=== PATIENT | female | born 1930 | race Hispanic/Latino ===

== ENCOUNTER 2019-06-13 21:16 | Inpatient (IN) | payer MEDICARE ==
[~2019-06-13] VITALS: Ht 152.4 cm; Wt 50.4 kg
[2019-06-13 21:47] LABS: BASOPHILS % (AUTO) 0.3 % (0.0-5.0); EOSINOPHILS % (AUTO) 1.2 % (0.0-8.0); HEMATOCRIT 31.9 % (36-48); LYMPHOCYTES % (AUTO) 33.1 % (21.0-51.0); MEAN CORPUSCULAR HEMOGLOBIN 27.6 pg (27.0-33.0); MEAN CORPUSCULAR HGB CONC 33.2 g/dL (32.0-36.0); MEAN CORPUSCULAR VOLUME 83.1 fL (79-99); MONOCYTES % (AUTO) 7.3 % (3.0-13.0); NEUTROPHILS % (AUTO) 57.9 % (40.0-77.0); PLATELET COUNT (AUTO) 332 K/uL (130-400); RED BLOOD CELL COUNT(AUTO) 3.84 MIL/uL (4.00-5.50); RED CELL DISTRIBUTION WIDTH 13.2 % (11.0-15.5); WHITE BLOOD COUNT (AUTO) 10.4 K/uL (4.8-10.8)
[2019-06-13 21:58] LABS: CREATININE 0.8 mg/dL (0.5-1.5); POTASSIUM 3.9 mmol/L (3.5-5.1)
[2019-06-13 22:02] LABS: ALBUMIN 2.6 g/dL (3.5-5.0); BILIRUBIN,TOTAL 0.1 mg/dL (0.2-1.0); TOTAL PROTEIN, SERUM 7.8 g/dL (6.0-8.3)
[2019-06-13 22:08] LABS: APPEARANCE,URINE CLEAR (CLEAR); BILIRUBIN,URINE NEGATIVE (NEGATIVE); COLOR,URINE YELLOW (YELLOW); GLUCOSE, URINE (UA) NEGATIVE (NEGATIVE); KETONES,URINE NEGATIVE (NEGATIVE); LEUKOCYTE ESTERASE ,URINE NEGATIVE (NEGATIVE); NITRATE,URINE NEGATIVE (NEGATIVE); OCCULT BLOOD,URINE NEGATIVE (NEGATIVE); PROTEIN,URINE NEGATIVE (NEGATIVE)
[2019-06-13 22:31] LABS: INR 0.9 (0.85-1.15); PROTHROMBIN TIME 9.8 SEC (9.6-11.6)
[2019-06-14] VITALS (7 sets, daily range): BP systolic 105–150; BP diastolic 52–76
[2019-06-14] MEDS: SODIUM CHLORIDE 0.9% 1000ML 1,000 ML IV SCH ×2 (00:25→21:48)
[2019-06-14] MEDS: ASPIRIN 81 MG EC TAB PO SCH ×2 (00:30→08:53)
[2019-06-14] MEDS ORDERED: ONDANSETRON HCL 4 MG/2 ML VIAL IV PRN (00:30)
[2019-06-14] MEDS ORDERED: DIPHENHYDRAMINE HCL 25 MG CAPSULE PO PRN (00:30)
[2019-06-14] MEDS ORDERED: ACETAMINOPHEN 325 MG TAB PO PRN ×2 (00:30)
[2019-06-14] MEDS ORDERED: NITROGLYCERIN 0.4 MG SL TAB SL PRN (00:30)
[2019-06-14 01:14] LABS: CREATINE KINASE, TOTAL 28 U/L (21-232); MYOGLOBIN 20 ng/mL (10-92); TROPONIN I < 0.04 ng/mL (0.00-0.06)
[2019-06-14] MEDS ORDERED: MEGE400O4 PO (05:11)
[2019-06-14] MEDS ORDERED: FLUO25PO10 MC (05:11)
[2019-06-14] MEDS ORDERED: ACET325T51 PO (05:11)
[2019-06-14] MEDS ORDERED: OMEG1CAP2 PO (05:31)
[2019-06-14] MEDS ORDERED: PROM25TA7 PO (05:31)
[2019-06-14] MEDS ORDERED: MVIT PO (05:31)
[2019-06-14] MEDS ORDERED: LISI-658 PO (05:31)
[2019-06-14] MEDS ORDERED: SIMV-43 PO (05:31)
[2019-06-14] MEDS ORDERED: ONDA4AMP IJ (05:31)
[2019-06-14] MEDS ORDERED: ZINC220T5 PO (05:31)
[2019-06-14] MEDS ORDERED: NITR0.4T50 SL (05:31)
[2019-06-14] MEDS ORDERED: ASCO-360 PO (05:31)
[2019-06-14] MEDS ORDERED: CALC-259 PO (05:31)
[2019-06-14 06:54] LABS: HEMATOCRIT 28.4 % (36-48); MEAN CORPUSCULAR HEMOGLOBIN 27.2 pg (27.0-33.0); MEAN CORPUSCULAR HGB CONC 33.1 g/dL (32.0-36.0); MEAN CORPUSCULAR VOLUME 82.3 fL (79-99); PLATELET COUNT (AUTO) 281 K/uL (130-400); RED BLOOD CELL COUNT(AUTO) 3.45 MIL/uL (4.00-5.50); RED CELL DISTRIBUTION WIDTH 13.1 % (11.0-15.5); WHITE BLOOD COUNT (AUTO) 9.6 K/uL (4.8-10.8)
[2019-06-14] MEDS ORDERED: IPRATROPIUM/ALBUTEROL SULFATE 3 ML SOLUTION IH PRN (07:15)
[2019-06-14 08:11] LABS: ALBUMIN 2.3 g/dL (3.5-5.0); BILIRUBIN,TOTAL 0.1 mg/dL (0.2-1.0); CREATININE 0.8 mg/dL (0.5-1.5); MAGNESIUM 1.8 mg/dL (1.80-2.40); POTASSIUM 3.9 mmol/L (3.5-5.1); TOTAL PROTEIN, SERUM 6.9 g/dL (6.0-8.3)
[2019-06-14 08:24] LABS: EOSINOPHILS % (MANUAL) 1 % (1-6); LYMPHOCYTES % (MANUAL) 40 % (22-44); MAN.DIFF COMMENT-IMPRESSION MANUAL DIFFERENTIAL; MONOCYTES % (MANUAL) 7 % (2-9); PLATELET MORPHOLOGY COMMENT ADEQUATE; SEGMENTED NEUTROPHILS % 52 % (40-70)
[2019-06-14] MEDS: FAMOTIDINE/PF 20 MG/2 ML VIAL IV SCH ×2 (08:53→21:48)
[2019-06-14] MEDS: ENOXAPARIN SODIUM 30 MG/0.3 ML SQ SCH (08:54)
[2019-06-14] MEDS ORDERED: METOPROLOL TARTRATE 25 MG TAB PO SCH (09:00)
[2019-06-14 09:35] LABS: CREATINE KINASE, TOTAL 19 U/L (21-232); MYOGLOBIN 18 ng/mL (10-92); TROPONIN I < 0.04 ng/mL (0.00-0.06)
[2019-06-14] MEDS ORDERED: LEVOFLOXACIN 500 MG/D5W 100 ML 100 ML IV SCH (10:15)
[2019-06-14] MEDS ORDERED: LEVOFLOXACIN 500 MG/D5W 100 ML 100 ML ONE (21:46)
[2019-06-14] MEDS: OSELTAMIVIR PHOSPHATE 75 MG CAP PO SCH (21:48)
[2019-06-14] MEDS: GUAIFENESIN 600 MG TABLET.ER PO SCH (22:30)
[2019-06-15] MEDS: SODIUM CHLORIDE 0.9% 1000ML 1,000 ML IV SCH ×2 (00:51→14:11)
[2019-06-15] MEDS ORDERED: PHARMACY COMMUNICATION MISC SCH (01:45)
[2019-06-15 04:03] VITALS: BP 125/61
[2019-06-15 06:33] LABS: BASOPHILS % (AUTO) 0.2 % (0.0-5.0); EOSINOPHILS % (AUTO) 0.9 % (0.0-8.0); HEMATOCRIT 27.7 % (36-48); LYMPHOCYTES % (AUTO) 28.2 % (21.0-51.0); MEAN CORPUSCULAR HEMOGLOBIN 27.8 pg (27.0-33.0); MEAN CORPUSCULAR HGB CONC 33.6 g/dL (32.0-36.0); MEAN CORPUSCULAR VOLUME 82.7 fL (79-99); NEUTROPHILS % (AUTO) 62.5 % (40.0-77.0); PLATELET COUNT (AUTO) 276 K/uL (130-400); RED BLOOD CELL COUNT(AUTO) 3.35 MIL/uL (4.00-5.50); RED CELL DISTRIBUTION WIDTH 13.1 % (11.0-15.5)
[2019-06-15 06:46] LABS: CREATININE 0.7 mg/dL (0.5-1.5); POTASSIUM 4.2 mmol/L (3.5-5.1)
[2019-06-15 07:43] VITALS: BP 130/61
--- NOTE | 2019-06-15 08:00 | NUR ---
AM SHIFT ASSESSMENT.
[2019-06-15] MEDS: OSELTAMIVIR PHOSPHATE 75 MG CAP PO SCH ×2 (11:29→20:43)
[2019-06-15] MEDS: GUAIFENESIN 600 MG TABLET.ER PO SCH ×2 (11:29→20:43)
[2019-06-15] MEDS: FAMOTIDINE/PF 20 MG/2 ML VIAL IV SCH ×2 (11:30→20:43)
[2019-06-15] MEDS: ENOXAPARIN SODIUM 30 MG/0.3 ML SQ SCH (11:31)
[2019-06-15 12:24] VITALS: BP 182/67
[2019-06-15] MEDS: ASPIRIN 81 MG EC TAB PO SCH (14:50)
--- NOTE | 2019-06-15 17:04 | NUR ---
NEW IV SITE, 22G RT. INNER FOREARM
[2019-06-15 17:14] VITALS: BP 127/57
--- NOTE | 2019-06-15 18:46 | NUR ---
D/C PLAN CM spoke to pt regarding d/c planning. Pt gave CM consent to speak to family member. CM called son Tony Mason and his Wendi Mason. [facility] plan is to return to [facility] at d/c. CM spoke to [facility] with [facility]. [facility] pt is ok to return to facility. CM explained pt is on droplet precautions for positive flu. Reports they have isolation bed for pt. SILVERIO in chart. CM to f/u. Addendum: 06/15/19 at 1848 by TABITHA ALLISON CM Amended: Links added.
[2019-06-15 19:37] VITALS: BP 127/52
[2019-06-15] MEDS: LEVOFLOXACIN 250 MG/D5W 50ML 50 ML IVPB SCH (20:43)
[2019-06-15 23:39] VITALS: BP 124/57
[2019-06-16] MEDS: SODIUM CHLORIDE 0.9% 1000ML 1,000 ML IV SCH ×2 (03:31→16:51)
[2019-06-16 03:49] VITALS: BP 143/60
[2019-06-16 05:59] LABS: BASOPHILS % (AUTO) 0.2 % (0.0-5.0); EOSINOPHILS % (AUTO) 1.4 % (0.0-8.0); HEMATOCRIT 28.4 % (36-48); LYMPHOCYTES % (AUTO) 35.5 % (21.0-51.0); MEAN CORPUSCULAR HEMOGLOBIN 27.1 pg (27.0-33.0); MEAN CORPUSCULAR HGB CONC 32.4 g/dL (32.0-36.0); MEAN CORPUSCULAR VOLUME 83.5 fL (79-99); MONOCYTES % (AUTO) 8.2 % (3.0-13.0); NEUTROPHILS % (AUTO) 54.3 % (40.0-77.0); PLATELET COUNT (AUTO) 294 K/uL (130-400); RED CELL DISTRIBUTION WIDTH 12.9 % (11.0-15.5); WHITE BLOOD COUNT (AUTO) 8.1 K/uL (4.8-10.8)
[2019-06-16 06:17] LABS: CREATININE 0.7 mg/dL (0.5-1.5); POTASSIUM 3.7 mmol/L (3.5-5.1)
[2019-06-16 08:00] VITALS: BP 126/46
[2019-06-16] MEDS: OSELTAMIVIR PHOSPHATE 75 MG CAP PO SCH ×2 (10:03→22:50)
[2019-06-16] MEDS: ASPIRIN 81 MG EC TAB PO SCH (10:04)
[2019-06-16] MEDS: FAMOTIDINE/PF 20 MG/2 ML VIAL IV SCH ×2 (10:04→22:50)
[2019-06-16] MEDS: GUAIFENESIN 600 MG TABLET.ER PO SCH ×2 (10:04→22:50)
[2019-06-16] MEDS: ENOXAPARIN SODIUM 30 MG/0.3 ML SQ SCH (10:04)
[2019-06-16 10:37] VITALS: BP_SYST 102; BP_SYST 106; BP_DIAS 40; BP_DIAS 45
[2019-06-16 15:20] VITALS: BP 138/54
--- NOTE | 2019-06-16 17:21 | NUR ---
CM NOTE REFERRAL FOR [facility], SILVERIO PREVIOUSLY SIGNED TO RETURN TO [facility]. CLINICALS AND [facility] ALONG WITH PT NOTES FAXED AND CONFIRMED RECEIVED. PER DINORA, WILL ACCEPT PATIENT ONCE MEDICALLY CLEARED.
--- NOTE | 2019-06-16 18:25 | NUR ---
[facility] CALLED [facility] TO GIVE NURSE REPORT. SPOKE TO 'DON' [phone], WHO TOLD ME SHE WOULD HAVE NURSE CALL ME BACK FOR REPORT. GAVE MY CALLBACK NUMBER AND AWAITING CALLBACK.
--- NOTE | 2019-06-16 18:45 | NUR ---
[facility] SPOKE TO [facility] BOILERMAKER'S ASSISTANT AND WAS TOLD THAT PATIENT WOULD HAS AN ISOLATION ROOM TOMORROW AND PATIENT WOULD NEED TO BE ON TAMIFLU FOR AT LEAST 48 HRS PRIOR TO RETURN TO FACILITY. INFORMED DR. CASTORENA OF THIS.
[2019-06-16 20:20] VITALS: BP 141/70
[2019-06-16] MEDS: LEVOFLOXACIN 250 MG/D5W 50ML 50 ML IVPB SCH (22:50)
[2019-06-16 23:42] VITALS: BP 145/73
[2019-06-17 03:45] VITALS: BP 121/56
[2019-06-17] MEDS: SODIUM CHLORIDE 0.9% 1000ML 1,000 ML IV SCH (05:51)
[2019-06-17 07:25] VITALS: BP 138/60
[2019-06-17] MEDS ORDERED: HYDROCHLOROTHIAZIDE 25 MG TABLET PO SCH (09:00)
[2019-06-17] MEDS ORDERED: CALCIUM 600 + VITAMIN D 400 TABLET PO SCH (09:00)
[2019-06-17] MEDS ORDERED: [UNRECOGNIZED DRUG - OTHER] PO SCH (09:00)
[2019-06-17] MEDS ORDERED: ASCORBIC ACID 500 MG TAB PO SCH (09:00)
[2019-06-17] MEDS ORDERED: ZINC SULFATE 220 CAPSULE PO SCH (09:00)
[2019-06-17] MEDS ORDERED: MEGESTROL 400 MG/10 ML UDCUP PO SCH (09:00)
[2019-06-17] MEDS ORDERED: FISH OIL 1000 MG/CAP PO SCH (09:00)
[2019-06-17] MEDS ORDERED: HYDROCHLOROTHIAZIDE PO SCH (09:00)
[2019-06-17] MEDS ORDERED: LISINOPRIL 20 MG TABLET PO SCH (09:00)
[2019-06-17] MEDS ORDERED: MULTIVITAMIN TABLET PO SCH (09:00)
[2019-06-17] MEDS ORDERED: FLUOXETINE HCL 20 MG CAPSULE PO SCH (09:00)
[2019-06-17] MEDS ORDERED: LISINOPRIL PO SCH (09:00)
[2019-06-17 10:39] VITALS: BP 125/58
[2019-06-17] MEDS ORDERED: LACTULOSE 20 GM/30 ML UDCUP PO SCH (11:15)
[2019-06-17] MEDS: OSELTAMIVIR PHOSPHATE 75 MG CAP PO SCH (12:32)
[2019-06-17] MEDS: ASPIRIN 81 MG EC TAB PO SCH (12:33)
[2019-06-17] MEDS: GUAIFENESIN 600 MG TABLET.ER PO SCH (12:33)
[2019-06-17] MEDS: FAMOTIDINE/PF 20 MG/2 ML VIAL IV SCH (12:39)
[2019-06-17] MEDS: ENOXAPARIN SODIUM 30 MG/0.3 ML SQ SCH (12:41)
[2019-06-17 15:32] VITALS: BP 139/57
--- NOTE | 2019-06-17 16:00 | NUR ---
[facility] CALLED TO GIVE REPORT TO [facility]. SPOKE TO 'RAFAEL' [phone] AND WAS TOLD SHE IS WAITING FOR "[employer] TECHNICIAN APPROVAL TO ACCEPT PATIENT" BECAUSE PATIENT REQUIRES DROPLET ISOLATION. WAS NOT ABLE TO GIVE REPORT AT THIS TIME. INFORMED ROBBIE BAILEY.
--- NOTE | 2019-06-17 17:15 | NUR ---
[facility] NURSE REPORT REPORT GIVEN TO LAWRENCE FAY OF [facility] [phone]. INFORMED PATIENT HAS BEEN ON TAMIFLU 75MG PO BID FOR OVER 48HOURS. PATIENT POSITIVE FOR FLU A AND FLU B. I WAS TOLD PATIENT WOULD HAVE ISOLATION ROOM. MEDICATION RECONCILIATION FAXED TO [facility] [phone] AND ALSO PLACED IN CHART COPY FOLDER. INFORMED PATIENT WOULD BE TRANSPORTED VIA EMS. LAWRENCE FAY TOLD ME TO INFORM 'EMS STAFF THAT PATIENT WOULD GO INTO ROOM 417 AT [facility] AND TO USE FRONT ENTRANCE'.
--- NOTE | 2019-06-17 17:20 | NUR ---
[facility] CALLED TO REPORT PATIENT READY TO BE PICKED UP IN FROM ROOM 330 AT [facility] AND TRANSPORTED TO [facility] TODAY.
[2019-06-17] MEDS ORDERED: SIMVASTATIN 20 MG TABLET PO SCH (21:00)
--- NOTE | 2019-06-17 21:45 | NUR ---
[facility] WAS CALLED TO WHAT TIME PT WILL BE PICKED-UP. REPLIED AROUND 30 MIN.
--- NOTE | 2019-06-17 22:37 | NUR ---
FOLLOW UP CALL TO [facility] WITH A REPLY THAT THEY ARE BUSY AND OUR PT WILL BE THE NEXT.
--- NOTE | 2019-06-17 23:15 | NUR ---
[facility] ARRIVED. NURSE TO NURSE REPORT GIVEN BY DAY SHIFT RN. PT ALERT AND VERY RESPONSIVE. NO APPARENT DISTRESS OR DISCOMFORT NOTED. PT DISCHARGE TO [facility] PER STRETCHER.
== END 2019-06-17 23:22 | DRG 194 ==
LOC: EDH 21:16 → OBSVTOIN 06-14 00:22 → EDHIP 06-14 00:22 → 3AH 06-14 01:28
PROVIDERS: ADMIT Internal Medicine; ATTEND Internal Medicine
DX: J10.1 Influenza due to other identified influenza virus with other respiratory manifestations (principal); E87.1 Hypo-osmolality and hyponatremia; E44.0 Moderate protein-calorie malnutrition; G30.9 Alzheimer's disease, unspecified; F02.80 Dementia in other diseases classified elsewhere, unspecified severity, without behavioral disturbance, psychotic disturbance, mood disturbance, and anxiety; J44.9 Chronic obstructive pulmonary disease, unspecified; E78.5 Hyperlipidemia, unspecified; I10 Essential (primary) hypertension; R07.89 Other chest pain; Z66 Do not resuscitate; F32.9 Major depressive disorder, single episode, unspecified; Z91.81 History of falling; Z82.49 Family history of ischemic heart disease and other diseases of the circulatory system; Z88.0 Allergy status to penicillin; Z79.899 Other long term (current) drug therapy
CPT/HCPCS: 36415; 71045; 80048; 80053; 80061; 81003; 82550; 83735; 83874; 84484; 85025; 85610; 85730; 87804; 93005; 94664; 97039; G0378; J1650; J1956; J2405; J3490; J7030

== ENCOUNTER 2019-07-11 15:25 | Emergency (ER) | payer MEDICARE ==
[~2019-07-11 15:25] MED LIST: ACET325T51 PO; ASCO-360 PO; CALC-259 PO; FLUO25PO10 MC; LISI-658 PO; MEGE400O4 PO; MVIT PO; NITR0.4T50 SL; OMEG1CAP2 PO; ONDA4AMP IJ; PROM25TA7 PO; SIMV-43 PO; ZINC220T5 PO
[2019-07-11 16:13] LABS: BASOPHILS % (AUTO) 0.3 % (0.0-5.0); EOSINOPHILS % (AUTO) 0.9 % (0.0-8.0); HEMATOCRIT 35.4 % (36-48); LYMPHOCYTES % (AUTO) 33.9 % (21.0-51.0); MEAN CORPUSCULAR HEMOGLOBIN 26.8 pg (27.0-33.0); MEAN CORPUSCULAR HGB CONC 32.2 g/dL (32.0-36.0); MEAN CORPUSCULAR VOLUME 83.3 fL (79-99); MONOCYTES % (AUTO) 6.8 % (3.0-13.0); NEUTROPHILS % (AUTO) 57.7 % (40.0-77.0); PLATELET COUNT (AUTO) 338 K/uL (130-400); RED BLOOD CELL COUNT(AUTO) 4.25 MIL/uL (4.00-5.50); RED CELL DISTRIBUTION WIDTH 14.3 % (11.0-15.5); WHITE BLOOD COUNT (AUTO) 7.6 K/uL (4.8-10.8)
[2019-07-11 16:14] LABS: APPEARANCE,URINE Cloudy (CLEAR); BILIRUBIN,URINE Negative (NEGATIVE); COLOR,URINE Yellow (YELLOW); GLUCOSE, URINE (UA) Negative (NEGATIVE); KETONES,URINE Negative (NEGATIVE); LEUKOCYTE ESTERASE ,URINE Moderate (NEGATIVE); NITRATE,URINE Positive (NEGATIVE); OCCULT BLOOD,URINE Negative (NEGATIVE); PROTEIN,URINE POS 1+ mg/dL (NEGATIVE)
[2019-07-11 16:19] LABS: CREATININE 0.9 mg/dL (0.5-1.5); POTASSIUM 4.3 mmol/L (3.5-5.1)
[2019-07-11 16:22] LABS: BACTERIA,URINE Moderate /HPF (None Seen); INR 0.92 (0.85-1.15); PARTIAL THROMBOPLASTIN TIME 31.3 SEC (26.3-35.5); RBC,URINE 0-1 /HPF (0-1)
[2019-07-11 16:23] LABS: SQUAMOUS EPITHELIAL CELL,UR Rare /HPF (0-2)
[2019-07-11 16:24] LABS: ALBUMIN 2.9 g/dL (3.5-5.0); BILIRUBIN,TOTAL 0.2 mg/dL (0.2-1.0); TOTAL PROTEIN, SERUM 8.1 g/dL (6.0-8.3)
== END 2019-07-11 19:12 | disposition home or self-care (01) ==
LOC: EDH 15:25
DX: R07.89 Other chest pain (principal); K20.9 Esophagitis, unspecified; J44.9 Chronic obstructive pulmonary disease, unspecified; I10 Essential (primary) hypertension; E78.00 Pure hypercholesterolemia, unspecified; M81.0 Age-related osteoporosis without current pathological fracture; G30.9 Alzheimer's disease, unspecified; F02.80 Dementia in other diseases classified elsewhere, unspecified severity, without behavioral disturbance, psychotic disturbance, mood disturbance, and anxiety; Z88.0 Allergy status to penicillin
CPT/HCPCS: 36415; 71045; 80053; 81001; 82550; 84484; 85025; 85610; 85730; 87077; 87088; 87186; 93005

== ENCOUNTER 2019-12-07 15:47 | Emergency (ER) | payer MEDICARE ==
[2019-12-07 18:06] LABS: BASOPHILS % (AUTO) 0.4 % (0.0-5.0); HEMATOCRIT 31.9 % (36-48); LYMPHOCYTES % (AUTO) 26.1 % (21.0-51.0); MEAN CORPUSCULAR HEMOGLOBIN 28.4 pg (27.0-33.0); MEAN CORPUSCULAR HGB CONC 33.2 g/dL (32.0-36.0); MEAN CORPUSCULAR VOLUME 85.5 fL (79-99); MONOCYTES % (AUTO) 6.9 % (3.0-13.0); NEUTROPHILS % (AUTO) 64.3 % (40.0-77.0); PLATELET COUNT (AUTO) 234 K/uL (130-400); RED BLOOD CELL COUNT(AUTO) 3.73 MIL/uL (4.00-5.50); RED CELL DISTRIBUTION WIDTH 12.3 % (11.0-15.5); WHITE BLOOD COUNT (AUTO) 10.3 K/uL (4.8-10.8)
[2019-12-07 18:23] LABS: CREATININE 0.8 mg/dL (0.5-1.5); POTASSIUM 4.2 mmol/L (3.5-5.1)
[2019-12-07 18:27] LABS: ALBUMIN 3.2 g/dL (3.5-5.0); BILIRUBIN,TOTAL 0.2 mg/dL (0.2-1.0); TOTAL PROTEIN, SERUM 7.7 g/dL (6.0-8.3)
[2019-12-07 20:13] LABS: APPEARANCE,URINE Turbid (CLEAR); BILIRUBIN,URINE Negative (NEGATIVE); COLOR,URINE Yellow (YELLOW); GLUCOSE, URINE (UA) Negative (NEGATIVE); KETONES,URINE Negative (NEGATIVE); LEUKOCYTE ESTERASE ,URINE Moderate (NEGATIVE); NITRATE,URINE Negative (NEGATIVE); OCCULT BLOOD,URINE Negative (NEGATIVE); PH,URINE 5.5 (5.0-8.0); PROTEIN,URINE Negative (NEGATIVE); UROBILINOGEN,URINE 0.2 mg/dL (0.2-1.0)
[2019-12-07 20:35] LABS: BACTERIA,URINE Many /HPF (None Seen); MUCUS,URINE Few LPF (None Seen); RBC,URINE 0-1 /HPF (0-1); SQUAMOUS EPITHELIAL CELL,UR Few /HPF (0-2)
== END 2019-12-07 20:59 | disposition home or self-care (01) ==
LOC: EDH 15:47
DX: S00.90XA Unspecified superficial injury of unspecified part of head, initial encounter (principal); F03.90 Unspecified dementia, unspecified severity, without behavioral disturbance, psychotic disturbance, mood disturbance, and anxiety; G30.9 Alzheimer's disease, unspecified; F32.9 Major depressive disorder, single episode, unspecified; E78.00 Pure hypercholesterolemia, unspecified; I10 Essential (primary) hypertension; M81.0 Age-related osteoporosis without current pathological fracture; W18.39XA Other fall on same level, initial encounter; Y93.89 Activity, other specified; Y92.89 Other specified places as the place of occurrence of the external cause; Y99.8 Other external cause status
CPT/HCPCS: 36415; 70450; 72125; 73590; 80053; 81001; 82550; 84484; 85025; 87077; 87088; 87186; 93005